=== PATIENT | male | born 1960 | race Caucasian/White ===

== ENCOUNTER → 2016-10-19 | Outpatient (CLI) | payer OTHER ==
[2016-10-19 12:40] LABS: ALT/SGPT 31 U/L (12-78); AST/SGOT 18 U/L (15-37); BLOOD UREA NITROGEN 22 mg/dl (7-18); BUN/CREATININE RATIO 23.5 (10-20); CALCIUM 8.8 mg/dl (8.5-10.1); CARBON DIOXIDE 30 mmol/L (21-32); CHLORIDE 110 mmol/L (98-107); CREATININE 0.95 mg/dl (0.60-1.40); GLUCOSE 92 mg/dl (70-99); POTASSIUM 3.9 mmol/L (3.5-5.1); SODIUM 144 mmol/L (136-145)
[2016-10-19 12:51] LABS: CHOLESTEROL 189 mg/dl (0-200); HDL CHOLESTEROL 47 mg/dl; LDL CHOLESTEROL CALCULATED 123 mg/dl; TRIGLYCERIDES 95 mg/dl (0-150); VERY LOW DENSITY LIPOPROT CALC 19 mg/dl
== END | disposition home or self-care (01) ==
LOC: C.LAB 09:21
DX: I10 Essential (primary) hypertension (principal); E78.5 Hyperlipidemia, unspecified

== ENCOUNTER → 2017-08-09 | Outpatient (CLI) | payer OTHER ==
[2017-08-09 10:11] LABS: ALT/SGPT 41 U/L (12-78); AST/SGOT 29 U/L (15-37); BLOOD UREA NITROGEN 31 mg/dl (7-18); CALCIUM 8.9 mg/dl (8.5-10.1); CARBON DIOXIDE 25 mmol/L (21-32); CREATININE 0.97 mg/dl (0.60-1.40); GLUCOSE 118 mg/dl (70-99); POTASSIUM 3.7 mmol/L (3.5-5.1); SODIUM 138 mmol/L (136-145)
== END | disposition home or self-care (01) ==
LOC: C.LAB 08:05
DX: I10 Essential (primary) hypertension (principal); E78.5 Hyperlipidemia, unspecified

== ENCOUNTER → 2017-10-16 | Outpatient (CLI) | payer OTHER ==
--- NOTE | 2017-10-16 17:34 | DIAGNOSTIC IMAGING REPORT ---
R LOWER EXT JOINT WITHOUT CLINICAL HISTORY: 57 years-old Male presenting with RT KNEE PAIN. TECHNIQUE: Multisequence, multiplanar MR imaging of the right knee was performed without the use of intravenous contrast. IV contrast: None. COMPARISON: Plain radiographs from 10/11/2017. FINDINGS: Localizer images: Unremarkable. Bone marrow: Foci of bone marrow edema and cystic change evident in the lateral patellar facet and lateral femoral condyle at the trochlea. Minimal edema noted in the medial tibial plateau primarily along the mid anterior weightbearing portion. Bony cystic change also noted posteriorly in the medial tibial plateau near the posterior root of the medial meniscus. Articular cartilage: Articular cartilage thinning and fissuring evident in the mid weightbearing portion of the medial femoral condyle and apposing medial tibial plateau. Focal articular cartilage defect in the mid to posterior weightbearing portion of the lateral femoral condyle (series 8 image 7). Full-thickness cartilage loss in the lateral patellar facet, which is fairly diffuse. Near full-thickness cartilage loss evident in the lateral trochlea. Fissuring and irregularity of the articular cartilage of the medial patellar facet and medial trochlea. Tricompartmental osteophytosis evident. Menisci: Complex tear of the root of the medial meniscus extending into the posterior horn and posterior horn-body junction. Meniscocapsular ligaments intact. No extrusion of the meniscus. Associated intraosseous ganglion or parameniscal cystic change at the root of the medial meniscus. Complex tear of the anterior horn of the lateral meniscus also noted involving the femoral articular surface (series 7 image 6). Cruciate ligaments: Increased signal intensity within the anterior cruciate ligament suggests mucoid degeneration. Posterior cruciate ligament intact. Collateral ligaments: Medial collateral ligament intact. Lateral collateral ligament complex including the biceps femoris tendon, fibular collateral ligament, popliteal tendon, and iliotibial band intact. Quadriceps and patellar tendons: Quadriceps and patellar tendons intact. Medial and lateral patellar retinacula intact. Joint effusion: Trace knee joint effusion. Trace popliteal cyst. Muscle: Normal muscle bulk and muscle signal intensity. Superficial soft tissue: Subcutaneous edema noted in the infrapatellar region. IMPRESSION: 1. Tricompartmental degenerative changes most severe in the patellofemoral compartment with full-thickness articular cartilage loss laterally. 2. Complex tear of the root and posterior horn of the medial meniscus. 3. Complex tear of the anterior horn of the lateral meniscus. 4. Mucoid degeneration of the ACL. 5. Trace knee joint effusion. Electronically signed by: Pepe Lugo M.D. 10/16/2017 5:33 PM Dictated Date/Time: 10/16/2017 5:21 PM
== END | disposition home or self-care (01) ==
LOC: C.MRIBC 16:29
PROVIDERS: ATTEND Orthopaedic Surgery
DX: S83.241A Other tear of medial meniscus, current injury, right knee, initial encounter (principal); S83.281A Other tear of lateral meniscus, current injury, right knee, initial encounter; X58.XXXA Exposure to other specified factors, initial encounter

== ENCOUNTER 2021-06-15 11:35 | Observation (INO) ==
--- NOTE | 2021-03-31 10:30 | PAT Medication Instructions ---
Medication Instructions Date of Service March 31, 2021 Home Medications docusate sodium 100 mg capsule (Dulcolax Stool Softener (docusate)) 100 mg PO QAM lisinopril 5 mg tablet 10 mg PO QAM loratadine 10 mg tablet (Allergy Relief (loratadine)) 10 mg PO QAM lorazepam 0.5 mg tablet 0.5 mg PO DAILY PRN metoprolol succinate 50 mg tablet,extended release 24 hr 50 mg PO QAM rosuvastatin 5 mg tablet 5 mg PO QAM cholestyramine (with sugar) oral powder 1 ea PO QAM coenzyme Q10 100 mg capsule (Co Q-10) 100 mg PO QAM naproxen sodium 220 mg capsule (Aleve) 660 mg PO QAM ASK your surgeon for instructions naproxen sodium 220 mg capsule (Aleve) 660 mg PO QAM STOP taking 2 weeks before surgery coenzyme Q10 100 mg capsule (Co Q-10) 100 mg PO QAM STOP taking 48 hours before surgery cholestyramine (with sugar) oral powder 1 ea PO QAM DO NOT take the morning of surgery loratadine 10 mg tablet (Allergy Relief (loratadine)) 10 mg PO QAM lisinopril 5 mg tablet 10 mg PO QAM docusate sodium 100 mg capsule (Dulcolax Stool Softener (docusate)) 100 mg PO QAM Take morning of surgery With a small sip of water, OTHERWISE NOTHING TO EAT OR DRINK AFTER MIDNIGHT: rosuvastatin 5 mg tablet 5 mg PO QAM metoprolol succinate 50 mg tablet,extended release 24 hr 50 mg PO QAM lorazepam 0.5 mg tablet 0.5 mg PO DAILY PRN(if needed) Other Notes If you have any questions please call us at [phone] or [phone] or [phone] or [phone]
--- NOTE | 2021-04-04 09:42 | Anesthesiology Consultation ---
Date of Service April 04, 2021 Assessment & Plan (1) Encounter for pre-operative examination: - medical clearance letter from [facility] vascular 02/22/2021: "...follow up of ascending aortic aneurysm on 02/21/2021. He has a stable ascending aortic aneurysm with no significant valvular disease. We plan to see him in one year for follow up surveillance testing. He is cleared from an aortic perspective to undergo knee replacement surgery." - Case discussed with Dr. Kellogg. Outpatient joint pathway: Per patient and surgeon, plan for outpatient joint program. Upon review of chart- patient is NOT an acceptable candidate for Same Day Joint Program given aneurysm. Trina at surgeon's office aware. Pt made aware in clinic. - COVID screening: Per assessment on 04/04/2021: Travel screen negative, no known COVID-19 positive contacts or current COVID-19 related symptoms. Patient vaccinated. Surgeon arranging preop COVID testing, scheduled 04/26/2021 [place]. Awaiting results. Chart Review Chart Review: Acceptable Risk for Surgery and Patient seen in Pre Admission Testing Teaching & Discussion Pre-Anesthesia Teaching/Discussion Notes: Instructed NPO after midnight before surgery, except medications with 15 cc of water. Medication instructions provided according to the PAT guidelines. History Surgery Operation Date: 04/28/21 10:20 Proposed Procedures p Left Total Knee Arthroplasty - Gee Monge DO Height/Weight Height: 5 ft 10 in Weight: 106.5 kg Allergies Allergy/AdvReac Type Severity Reaction Status Date / Time No Known Allergies Allergy Verified 03/27/21 08:33 Medications Home Medications Medication Instructions Recorded Confirmed Last Taken docusate sodium 100 mg capsule 100 mg PO QAM 09/06/20 03/27/21 Unknown (Dulcolax Stool Softener (docusate)) lisinopril 5 mg tablet 10 mg PO QAM 09/06/20 03/27/21 Unknown loratadine 10 mg tablet (Allergy 10 mg PO QAM 09/06/20 03/27/21 Unknown Relief (loratadine)) lorazepam 0.5 mg tablet 0.5 mg PO DAILY PRN 09/06/20 03/27/21 Unknown metoprolol succinate 50 mg 50 mg PO QAM 09/06/20 03/27/21 Unknown tablet,extended release 24 hr rosuvastatin 5 mg tablet 5 mg PO QAM 09/06/20 03/27/21 Unknown cholestyramine (with sugar) oral 1 ea PO QAM 03/27/21 03/27/21 Unknown powder coenzyme Q10 100 mg capsule (Co 100 mg PO QAM 03/27/21 03/27/21 Unknown Q-10) naproxen sodium 220 mg capsule 660 mg PO QAM 03/27/21 03/27/21 Unknown (Aleve) Past Medical History Medical History (Updated 04/04/21 @ 15:53 by Deloris Green PA-C) Anxiety rare prn lorazepam use Aortic aneurysm 5 cm ascending thoracic aortic aneurysm on chest CTA 01/2021 Hx of nasal polyp removal > 20 yrs ago Hyperlipidemia Hypertension controlled, stable per pt, improving with intentional wt loss Osteoarthritis Snores now infrequent, has lost 10lbs, improving per pt and Patient denies h/o stroke, seizures, heart attack, heart failure, DM, blood clots or blood transfusions. Exercise / Class Metabolic Activity III < 4 Walking/Shop/Light housework (no CP or SOB) Past Family History Family History Brother Stroke He states potential concern for his brother having a clotting disorder when brother had stroke s/p catheterization for suspected NE. Pt states his and his brother's work-up with hematology negative. Past Surgical History Surgical History (Updated 04/04/21 @ 10:08 by Deloris rGeen PA-C) H/O umbilical hernia repair History of colonoscopy Hx of LASIK Hx of vasectomy Past Anesthesia History No Hx of Anesthesia Complications and No Family Hx of Anesthesia Complications History of PONV No Hx of PONV and No Hx of Motion Sickness Social History Smoking Status: Never smoker Do You Dip or Chew Tobacco: No Hx Alcohol Use: Yes Alcohol type: beer alcohol intake frequency: 0-2 drinks per day Hx Substance Use: No substance use type: does not use Review of Systems Patient denies chest pain, shortness of breath, dyspnea on exertion, witnessed apneas, reflux, fever, chills, cough, wheezing, or palpitations. Physical Exam Vital Signs Vitals BP 137/89 P 62 TEMP 98.5 SP02 98% on RA RESP 16 Physical Full cervical extension range of motion without pain Full TMJ range of motion TMD 3.5 finger breaths Mallampati Score 2 Dentition: intact, front left bottom chipped tooth; denies missing or loose teeth, caps/crowns, bridges or implants Lungs: normal respiratory effort. Clear throughout to auscultation, no adventitious breath sounds Cardiac: regular rate and rhythm, no murmurs noted Carotid arteries: negative bruit bilat Extremities: no distal extremity edema Lab Results Anesthesia Preop Results Results Anesthesia Widget: WBC 7.11 K/uL (4.8-10.8) 04/04/21 Hgb 15.2 g/dL (14.0-18.0) 04/04/21 Hct 44.9 % (42-52) 04/04/21 Plt 247 K/uL (130-400) 04/04/21 Na 141 mmol/L (136-145) 04/04/21 K 4.6 mmol/L (3.5-5.1) 04/04/21 Cl 109 mmol/L (98-107) H 04/04/21 CO2 27 mmol/L (21-32) 04/04/21 BUN 14 mg/dl (7-18) 04/04/21 Creat 0.90 mg/dl (0.6-1.4) 04/04/21 Glucose Level 94 mg/dl (70-99) 04/04/21 PT 10.3 Seconds (9.0-12.0) 04/04/21 PTT 25.8 Seconds (21.0-31.0) 04/04/21 INR 1.0 (0.9-1.1) 04/04/21 Blood Type A Positive 04/04/21 Antibody Screen NEGATIVE 04/04/21 Testing Electrocardiogram Date: 04/04/21 Normal sinus rhythm, rate 63 bpm. Sinus arrhythmia. Non-specific intra-ventricular conduction delay. Borderline ECG. No previous ECGs. Confirmed by Jairo Siddiqi. Chest X-Ray Date: 04/04/21 IMPRESSION: No acute chest disease. Echocardiogram Date: 02/06/21 Left ventricular systolic function is normal. No regional wall motion abnormalities noted. Mild cLVH. EF 55-60%. Mild tricuspid regurgitation. Mild aortic root dilatation 4.2 cm. Moderately dilated ascending aorta 4.8 cm. Grade I diastolic dysfunction. Compared with study dated 05/15/2018, no significant change. Other Testing Chest CTA 02/06/2021: Ascending aorta measures 5 cm in caliber at the level of the main pulmonary artery. IMPRESSION: 1. 5 cm ascending thoracic aortic aneurysm, minimally increased in caliber since CT of May 15, 2018 when it measured 4.8 cm. 2. No thoracic aortic dissection. 3. Cardiomegaly.
--- NOTE | 2021-06-14 16:48 | History & Physical Report ---
Date of Service June 14, 2021 Assessment & Plan (1) Osteoarthritis of left knee: We will proceed with a left total knee arthroplasty. Postoperatively he will be started on aspirin for DVT prophylaxis and kept overnight in the hospital for postoperative medical management. He plans to use [employer] upon discharge. History of Present Illness Chief Complaint: Osteoarthritis of the left knee. Primary Care Provider: Guillermo Hernandez Jr, Tad is a pleasant 61-year-old male who is been dealing with chronic worsening left knee pain. X-rays and clinical examination have been diagnostic for advanced osteoarthritis of the left knee. After failing extensive conservative treatment, including multiple injections, he has elected to proceed with a left total knee arthroplasty. Allergies Allergy/AdvReac Type Severity Reaction Status Date / Time No Known Allergies Allergy Verified 06/14/21 13:00 Home Medications Medication Instructions Recorded Confirmed Type docusate sodium 100 mg capsule 100 mg PO QAM 09/06/20 06/14/21 History (Dulcolax Stool Softener (docusate)) lisinopril 5 mg tablet 10 mg PO QAM 09/06/20 06/14/21 History loratadine 10 mg tablet (Allergy 10 mg PO QAM 09/06/20 06/14/21 History Relief (loratadine)) lorazepam 0.5 mg tablet 0.5 mg PO DAILY PRN 09/06/20 06/14/21 History metoprolol succinate 50 mg 50 mg PO QAM 09/06/20 06/14/21 History tablet,extended release 24 hr rosuvastatin 5 mg tablet 5 mg PO QAM 09/06/20 06/14/21 History cholestyramine (with sugar) oral 1 ea PO QAM 03/27/21 06/14/21 History powder coenzyme Q10 100 mg capsule (Co 100 mg PO QAM 03/27/21 06/14/21 History Q-10) naproxen sodium 220 mg capsule 660 mg PO QAM 03/27/21 06/14/21 History (Aleve) Past Med/Surg History Medical History Anxiety rare prn lorazepam use Aortic aneurysm 5 cm ascending thoracic aortic aneurysm on chest CTA 01/2021 Hx of nasal polyp removal > 20 yrs ago Hyperlipidemia Hypertension controlled, stable per pt, improving with intentional wt loss Osteoarthritis Snores now infrequent, has lost 10lbs, improving per pt and Surgical History H/O umbilical hernia repair History of colonoscopy Hx of LASIK Hx of vasectomy Family History Brother Stroke Social History Smoking Status: Never smoker Second Hand Exposure: No; Hx Alcohol Use: Yes Alcohol type: beer Hx Substance Use: No Preferred Language: [place] Communication Ability: Effective Photographic Reproduction Technician Required: No Beliefs That Will Affect Care: None Current Living Situation: Spouse Feels Safe at Home: Yes Assistive Devices: None Review of Systems All systems reviewed & are unremarkable except as noted in HPI & below. Physical Exam Physical examination of his left knee he has a slight varus deformity. He has range of motion of 0 to 120 degrees. He is no instability. He has pain of the distal medial femoral condyle.. Constitutional WD/WN, vitals as above Eyes PERRL, conjunctivae normal, anicteric sclerae ENMT external ear and nose normal, oropharynx normal Neck trachea midline, no thyromegaly Respiratory normal respiratory effort Cardiovascular RRR, no murmur, no edema Gastrointestinal (Abdomen) normal bowel sounds, soft, nontender, no hepatosplenomegaly Psychiatric A+Ox3, euthymic affect Results & Data Results & Data Laboratory Results . Diagnostic Findings X-rays of the left knee do show advanced osteoarthritis with joint space narrowing, osteophyte formation, and [id number] articulation. PG Care Time/CCT Total # of Minutes Spent Total Time Spent with Patient: Total time spent is greater than 50% in coordination of care (as documented) at patient's floor/unit and/or counseling patient: Coding Level of Care Code None Diagnoses Osteoarthritis of left knee M17.12
[~2021-06-15 11:35] MED LIST: ACETAMINOPHEN 500 MG TAB PO SCH; BUPIVACAINE 0.5 % 5 MG/1 ML PF 10ML VIAL ONE; EPINEPHrine INJ 1 MG/ML AMP ONE; FAMOTIDINE 20 MG TAB PO SCH; GABAPENTIN 600 MG DOSE PO SCH; LR 500ML BOLUS, THEN 15ML/HR IV SCH; LR 60ML/HR IV SCH; ROPIVACAINE 0.5% 5 MG/ML 30 ML VIAL ONE; ROPIVACAINE 0.5% HCL/PF 150 MG, BUPIVACAINE 0.75% MPF 20 ML, EPINEPHrine 30MG/30ML (OR ... INSTIL SCH; TRANEXAMIC ACID 1,000 MG **IV Intra-op IV SCH; TRANEXAMIC ACID 1,000 MG **IV Pre-op IV SCH; ceFAZolin 2000MG 2,000 MG/15 ML SYR IV SCH; dexAMETHasone 4 MG TAB PO SCH
--- NOTE | 2021-06-15 12:28 | History & Physical Bridge Note ---
Date of Service June 15, 2021 History & Physical Bridge Note I have examined the patient, reviewed the History & Physical and in the interval since the performance of the History & Physical I have noted the following changes of clinical significance: no changes noted
[2021-06-15 12:36] LABS: Basophils # (auto) 0.01 K/uL (0-0.2); Basophils % (auto) 0.1 %; Eosinophils # (auto) 0.12 K/uL (0-0.5); Eosinophils % (auto) 1.5 %; Hematocrit (blood only) 45.6 % (42-52); Hemoglobin 15.4 g/dL (14.0-18.0); Immature Granulocytes # (auto) 0.01 K/uL (0.00-0.02); Immature Granulocytes % (auto) 0.1 %; Lymphocytes # (auto) 2.25 K/uL (1.2-3.4); Lymphocytes % (auto) 27.5 %; Mean Corpuscular Hemoglobin 30.3 pg (25-34); Mean Corpuscular Volume 89.8 fL (80-100); Mean Platelet Volume 9.5 fL (7.4-10.4); Monocytes # (auto) 0.89 K/uL (0.11-0.59); Monocytes % (auto) 10.9 %; Neutrophils # (auto) 4.89 K/uL (1.4-6.5); Neutrophils % (auto) 59.9 %; Platelet Count 248 K/uL (130-400); RDW Coefficient of Variation 13.8 % (11.5-14.5); RDW Standard Deviation 46.2 fL (36.4-46.3); Red Blood Count 5.08 M/uL (4.7-6.1); White Blood Count 8.17 K/uL (4.8-10.8)
[2021-06-15 12:40] LABS: Mean Corpuscular Hgb Conc 33.8 g/dL (32-36)
[2021-06-15 12:57] LABS: BUN Creatinine Ratio 22.5 (10-20); Est GFR (African American) 108.5 ml/min; Est GFR (Non-African American) 93.6 ml/min
[2021-06-15 13:11] LABS: Partial Thromboplastin Ratio 0.9; Partial Thromboplastin Time 24.8 Seconds (21.0-31.0)
[2021-06-15] MEDS ORDERED: fentaNYL citrate 100 MCG/2 ML VIAL ONE (13:16)
[2021-06-15] MEDS ORDERED: MIDAZOLAM HCL 1 MG/ML 2ML VIAL ONE (13:16)
[2021-06-15] MEDS ORDERED: ePHEDrine sulfate 50 MG/ML AMP IV PRN ×2 (13:21→13:59)
[2021-06-15] MEDS ORDERED: ATROPINE SULFATE 0.1 MG/ML 10ML SYR IV PRN ×2 (13:21→13:59)
[2021-06-15] MEDS ORDERED: ONDANSETRON INJ 2 MG/ML 2 ML VIAL IV PRN ×3 (13:21→18:28)
[2021-06-15] MEDS ORDERED: fentaNYL citrate 100 MCG/2 ML VIAL IV PRN ×2 (13:21→13:59)
[2021-06-15] MEDS ORDERED: LIDOCAINE 2%/EPINEPHRINE 1:200,000 20 ML SDV ONE (13:24)
[2021-06-15] MEDS ORDERED: ORTHO JOINT ANESTHETIC ONE (13:47)
[2021-06-15] MEDS ORDERED: PROPOFOL IV EMULSION 10 MG/ML 20 ML VIAL IV ONE ×2 (13:52→15:01)
[2021-06-15] MEDS ORDERED: ONDANSETRON INJ 2 MG/ML 2 ML VIAL ONE (13:53)
[2021-06-15] MEDS ORDERED: ePHEDrine sulfate 50 MG/ML SYR ONE (14:50)
--- NOTE | 2021-06-15 15:37 | Operative Report ---
PG Post Operative Report Pre & Post Diagnosis Operation Date: 04/28/21 07:00 <No data on this case meets the specified criteria> Operation Date: 06/15/21 13:45 Pre-Op Diagnosis: Degenerative joint disease left knee. Post-Op Diagnosis: Degenerative joint disease left knee. I identified the patient and participated in the time-out.: Yes Procedure Operation Date: 04/28/21 07:00 <No data on this case meets the specified criteria> Operation Date: 06/15/21 13:45 Actual Procedures p Left Total Knee Arthroplasty(Left) - Gee Monge DO Surgeon Gee Monge DO Sheet Metal Mechanic Gee Booker PAC Estimated Blood Loss 10 Findings Consistent with Post-Op Diagnosis Specimens Left femoral and tibial bone Complications none Disposition Disposition: Recovery Room Indications Tad is a pleasant 61-year-old male who has been doing with chronic worsening left knee pain. X-rays and clinical examination were diagnostic for advanced osteoarthritis of the left knee. After failing conservative treatment, he elected proceed with a left total knee arthroplasty. Description of Procedure Implants used: I used a Ashli Persona total knee arthroplasty system with a size 11 standard femur, G tibia, 31 patella, and a size 11 medial congruent polyethylene bearing. All components were cemented in place with Simplex HV cement. Tad arrived [facility] for the above procedure. He was seen in the preoperative holding area and the operative extremity was identified and signed. He was given a preoperative antibiotic, TXA, a spinal anesthetic and an adductor nerve block. He was taken back to the operating room and laid on the table in supine position. He was given basic sedation. The operative knee was then prepped and draped in sterile fashion. A timeout was done, and the patient and the operative extremity was properly identified. A midline incision was made directly over the patella. Dissection was taken down to the extensor mechanism. A subvastus arthrotomy was used. The medial retinaculum was released and the fat pad was mostly excised. The knee was flexed and the ACL, PCL, and meniscus were removed. A drill was sent down the center of the femoral canal followed by an intramedullary romaine. Off that romaine a distal femoral cutting block was placed. 9 mm was resected off the distal femur at 5 of valgus. A posterior referencing AP sizing guide was then placed on the distal femur. The femur measured to be a size 11. 2 drill holes were placed in 3 of external rotation. A 4-in-1 cutting block was then impacted into place. Anterior, posterior, and chamfer cuts were then made. The proximal tibia was then exposed. An external tibial alignment guide was placed. A tibial cut guide was then anchored in place and the proximal tibia was then resected. The posterior aspect of the knee was then opened up and any additional meniscus fragments and osteophytes were removed. The tibia measured to be a size G. The tibial plate was then placed in the appropriate rotation and the tibia was drilled and punched. Trial components were then placed. I used a size 11 medial congruent polyethylene insert. The knee was brought through a full range of motion and felt to be stable. The peg holes for the femoral component were then drilled. The patella was then everted and 9 mm was resected off the posterior aspect of the patella. The patella measured to be a size 31. 3 peg holes were then drilled. A trial patella was placed. The knee was once again brought through a full range of motion and felt to be stable. Trial components were then removed. The surrounding soft tissues were injected with 100 cc of an orthopedic pain control cocktail. All components were then cemented into place with Simplex HV cement. The final polyethylene insert was then snapped into place. Once cement was dry the tourniquet was deflated. Hemostasis was obtained. A dilute betadyne lavage was then done for 3 minutes. The joint was then irrigated with normal saline solution. The subvastus arthrotomy was then closed with #1 Vicryl suture. The skin was closed with 2-0 Vicryl, 3-0V lock suture, and vince. A soft compressive dressing was placed. He was then transferred to a hospital bed and taken to the postanesthesia care unit in stable condition. He tolerated the procedure well. Gee Booker PA-C, was present for the entire procedure. He was critical for patient positioning, prepping, draping, retraction exposure, wound closure and application of sterile dressing. I attest to the content of the Intraoperative Record and any orders documented therein. Any exceptions are noted below.
--- NOTE | 2021-06-15 16:37 | XRay Report ---
TWO VIEWS LEFT KNEE CLINICAL HISTORY: Postoperative examination. FINDINGS: AP and crosstable lateral portable views of the left knee are obtained. A left knee arthrop lasty is in near anatomic alignment. There has been undersurface remodeling of the patella. No acute fracture is seen. There are expected postoperative changes around the knee including skin clips, soft tissue edema, and subcutaneous gas. IMPRESSION: Expected postoperative changes status post left knee arthroplasty. No acute fracture is s een. ACT 112: Negative or not required by law. Electronically signed by: Steve Worley M.D. 06/15/2021 4:35 PM
--- NOTE | 2021-06-15 16:37 | Anesthesia Procedure Note ---
Date of Service June 15, 2021 Anesthesia Post Epidural Note Vital Signs Vital Signs: Temp Pulse Resp BP Pulse Ox 97.3 F L 64 13 142/92 H 96 06/15/21 15:56 06/15/21 16:25 06/15/21 16:25 06/15/21 16:25 06/15/21 16:25 Notes Mental Status: alert / awake / arousable and participated in evaluation Nausea / Vomiting: adequately controlled Pain: adequately controlled Airway Patency, RR, SpO2: stable & adequate BP & HR: stable & adequate Hydration State: stable & adequate Neuraxial Anesthesia: was administered and sensory block is resolving Anesthetic Complications: no major complications apparent and Pt Satisfied with anesthetic care Epidural: Removed without complications and With tip intact
--- NOTE | 2021-06-15 17:37 | Anesthesiology Progress Note ---
Date of Service June 15, 2021 Anesthesia Post Procedure Vital Signs Vital Signs: Temp Pulse Pulse Resp BP Pulse Ox 06/15/21 17:15 67 17 136/88 97 06/15/21 17:00 68 17 141/95 H 98 06/15/21 16:45 69 20 139/98 96 06/15/21 16:35 36.1 C L 66 19 143/88 H 96 06/15/21 16:25 64 13 142/92 H 96 06/15/21 16:15 68 14 149/89 H 100 06/15/21 16:05 67 17 142/87 H 100 06/15/21 15:56 36.3 C L 68 12 135/80 100 06/15/21 12:28 36.9 C 68 18 168/104 H 99 Transfer of Care Handoff Completed per policy Notes Mental Status: alert / awake / arousable and participated in evaluation Patient Amnestic to Procedure: Yes Nausea / Vomiting: adequately controlled Pain: adequately controlled Airway Patency, RR, SpO2: stable & adequate BP & HR: stable & adequate Hydration State: stable & adequate Anesthetic Complications: no major complications apparent and Pt Satisfied with anesthetic care
[2021-06-15] MEDS ORDERED: SODIUM CHLORIDE 0.9% 1000ML 1,000 ML IV SCH (18:28)
[2021-06-15] MEDS ORDERED: LORazepam 0.5 MG TAB PO PRN (18:28)
[2021-06-15] MEDS ORDERED: bisacodyL 10 MG SUPP PR PRN (18:28)
[2021-06-15] MEDS ORDERED: HYDROmorphone INJ 0.5 MG/0.5 ML SYR IV PRN (18:28)
[2021-06-15] MEDS ORDERED: NALOXONE HCL 0.4 MG/1 ML VIAL/CARP IV PRN (18:28)
[2021-06-15] MEDS ORDERED: MAGNESIUM HYDROXIDE SUSP 30 ML UDC PO PRN (18:28)
[2021-06-15] MEDS ORDERED: METOCLOPRAMIDE HCL INJ 5 MG/ML 2 ML VIAL IV PRN (18:28)
[2021-06-15] MEDS ORDERED: oxyCODONE HCL IR 5 MG TAB (IMMEDIATE RELEASE) PO PRN (18:28)
[2021-06-15] MEDS ORDERED: SENNA 8.6 MG TAB PO SCH (21:00)
[2021-06-15] MEDS: KETOROLAC 30 MG/ML VIAL IV SCH (21:03)
[2021-06-15] MEDS: ASPIRIN 81 MG ECTAB PO SCH (21:04)
[2021-06-15] MEDS: ceFAZolin 2000MG 2,000 MG/15 ML SYR IV SCH (21:05)
[2021-06-15] MEDS: ACETAMINOPHEN 500 MG TAB PO SCH (21:05)
[2021-06-15] MEDS: DOCUSATE SODIUM 100 MG CAP PO SCH (21:05)
[2021-06-16] MEDS: KETOROLAC 30 MG/ML VIAL IV SCH ×2 (03:18→07:55)
[2021-06-16] MEDS: ceFAZolin 2000MG 2,000 MG/15 ML SYR IV SCH (06:39)
[2021-06-16] MEDS: ACETAMINOPHEN 500 MG TAB PO SCH (06:39)
[2021-06-16] MEDS: DOCUSATE SODIUM 100 MG CAP PO SCH (07:56)
[2021-06-16] MEDS ORDERED: dexAMETHasone 4 MG TAB PO SCH (08:00)
--- NOTE | 2021-06-16 08:05 | Orthopedic Progress Note ---
Date of Service June 16, 2021 Assessment & Plan (1) Status post left knee replacement: Overall he is doing very well. Is not having much pain in the left knee. He is on aspirin for DVT prophylaxis. He will be seen by physical therapy today for ambulation and range of motion exercises. He can be discharged home later today. He will follow-up with orthopedics in 2 weeks. Cecille Mishra was seen and examined at bedside this morning. Overall is doing very well. He is not having much pain in the left knee. Has been up and ambulating. He has no complaints.. Review of Systems All systems reviewed & are unremarkable except as noted in HPI & below. Physical Exam On physical examination of the left knee, he is sitting at bedside with his knee flexed at 90 degrees. He has active dorsiflexion plantarflexion of his left ankle. The dressing is clean and dry. Results & Data Results & Data Laboratory Results . Diagnostic Findings The prosthesis to be in anatomic alignment without any evidence of fracture, desiccation, or loosening. PG Care Time/CCT Total # of Minutes Spent Total Time Spent with Patient: Total time spent is greater than 50% in coordination of care (as documented) at patient's floor/unit and/or counseling patient: Coding Level of Care Code 67864 Post Operative Follow-Up Diagnoses Status post left knee replacement Z96.652
--- NOTE | 2021-06-16 08:06 | Discharge Summary ---
Date of Service June 16, 2021 Admission HPI (Per Admitting) Tad is a pleasant 61-year-old male who is been dealing with chronic worsening left knee pain. X-rays and clinical examination have been diagnostic for advanced osteoarthritis of the left knee. After failing extensive conservative treatment, including multiple injections, he has elected to proceed with a left total knee arthroplasty. Admission Exam (Per Admitting) Physical examination of his left knee he has a slight varus deformity. He has range of motion of 0 to 120 degrees. He is no instability. He has pain of the distal medial femoral condyle.. Principal Diagnosis Same as "Discharge Diagnosis" noted below under Discharge Instructions. Discharge Exam On physical examination of the left knee, he is sitting at bedside with his knee flexed at 90 degrees. He has active dorsiflexion plantarflexion of his left ankle. The dressing is clean and dry. Discharge Data Procedures Performed Operation Date: 04/28/21 07:00 <No data on this case meets the specified criteria> Operation Date: 06/15/21 13:45 Actual Procedures p Left Total Knee Arthroplasty(Left) - Gee Mogne DO Ordered Studies 06/15/21 05:00 US - OR guided needle placemen Routine Hospital Course (1) Status post left knee replacement: On June 15 2021 Tad arrived at [facility] and underwent a left knee replacement without complication. He had a spinal anesthetic. Postoperatively he was started on aspirin for DVT prophylaxis and transferred to the general orthopedic floors. His hospital course was uneventful. On postop day #1 his vital signs were stable and his pain was well controlled. He was able to participate well with physical therapy doing ambulation and range of motion exercises. He was then discharged home. He will follow-up with orthopedics in 2 weeks. PG Care Time/CCT Total # of Minutes Spent Total Time Spent with Patient: Total time spent is greater than 50% in coordination of care (as documented) at patient's floor/unit and/or counseling patient: Discharge Plan Discharge Items Patient Disposition: Home - Home Health Services Reason For Visit: POST SURGICAL VISIT Discharge Diagnosis: Left knee replacement Activity: As commented below Non-emergency contact: Surgeon Call non-emergency contact if: your wound has increased redness and your wound has increased drainage Follow-up/Referrals: Guillermo Hernandez Jr, DO [Primary Care Provider] - Diet: Regular Addtl Attending Provider Instructions: Activity and Therapy Recommendations: * If you are using [facility] then therapy will be provided at your home until they feel you have accomplished all of your goals. * If you are using [facility] then Physical Therapy will be provided until they feel you are ready to start Outpatient Physical Therapy. * If you are not using home therapy then Outpatient Physical Therapy should start about 3-5 days from your day of surgery. Therapy will last about 6-10 weeks * It is important not to put a pillow under your knee when you are relaxing or sleeping. It is just as important to make sure you are getting your knee perfectly straight as it is to regain your knee bend. * You were shown a series of exercises in the hospital. Do these exercises three times each day including the exercises you were shown in physical therapy. * Get up and walk several times each day. For the first four weeks, try not to stand or walk for more than one hour at a time. If you do stand or walk for more than one hour, you will not hurt anything, but your leg will likely swell. * As you feel comfortable, you may change from the walker or crutches to a cane and then to independent walking. Medications: * Narcotic You will likely be sent home from the hospital with a prescription for the narcotic pain medication that worked best throughout your stay. * Aspirin Most patients will be required to take Aspirin 81mg twice a day for 6 weeks after surgery. This is obtained [id number] and a prescription is not necessary. * Other medications may be prescribed for specific circumstances. If you have any questions, please call the office at . * Resume previous home medications unless otherwise instructed TEDs/Elastic Stockings: The white elastic stockings help limit swelling and prevent blood clots from forming in your legs.~ The more you wear them, the more they work. Wear them for six weeks. Dressing Care: The dressing can be changed after physical therapy on postop day #1. Daily dry dressing changes for a few days, especially if the incision is still draining some. If the incision is not draining then you may leave the vince open to air. If there is a little bit of drainage or if the vince are getting stuck on your clothing then cover the incision with a dry dressing. The vince will be removed at your 2 week follow-up appointment. Showering: You may shower 5 days from the day of surgery as long as the incision is no longer draining. You may shower with the vince exposed. Let soapy water run over the vince and pat them dry. Do not scrub or soak the incision. Things To Watch For: * Drainage from the incision site that occurs more than one week after your surgery. * Increased redness at the incision site. * Fever above 102 degrees Fahrenheit. * Unusual chest pain or shortness of breath. * Call [facility] at with any of the above problems Follow-Up Visit: Follow-up with Dr. Monge's PA (Gee Booker) 2-3 weeks after your day of surgery. He will remove your vince and answer any questions. If you have any additional questions or concerns, Dr Monge is usually in the office at the same time and will be available An appointment was probably scheduled when you signed-up for surgery in the office. If you have any questions call Office Instructions: More detailed instructions as well as Frequently Asked Questions were provided in a folder by our office when you signed-up for surgery. Please review these instructions when you get home. If you have any further questions or concerns, please feel free to call the office at [phone] Pending Studies at Discharge: No Stand-Alone Forms: My [facility], Smoking Cessation Medications and DC Order Prescriptions: New aspirin [Adult Aspirin Regimen] 81 mg tablet,delayed release (DR/EC) 81 mg PO BID Qty: 84 RF: 0 Continued lorazepam 0.5 mg tablet 0.5 mg PO DAILY PRN (Reason: Anxiety) RF: 0 rosuvastatin 5 mg tablet 5 mg PO QAM RF: 0 lisinopril 5 mg tablet 10 mg PO QAM RF: 0 metoprolol succinate 50 mg tablet extended release 24 hr 50 mg PO QAM RF: 0 loratadine [Allergy Relief (loratadine)] 10 mg tablet 10 mg PO QAM RF: 0 docusate sodium [Dulcolax Stool Softener (dss)] 100 mg capsule 100 mg PO QAM RF: 0 coenzyme Q10 [Co Q-10] 100 mg Capsule 100 mg PO QAM RF: 0 cholestyramine (with sugar) Powder 1 ea PO QAM RF: 0 naproxen sodium [Aleve] 220 mg Capsule 660 mg PO QAM RF: 0 Discharge Orders: Discharge Order (Routine); Ordered 06/16/21 Ordered By: Gee Monge Admission Data Admit Date/Time: 06/15/21 15:58 Attending Provider: Gee Monge Admit Provider: Gee Monge Primary Care Provider: Guillermo Hernandez Jr
[2021-06-16] MEDS ORDERED: MULTIVITAMIN TAB PO SCH (09:00)
[2021-06-16] MEDS ORDERED: METOPROLOL SUCC 50MG EXT REL TAB PO SCH (09:00)
[2021-06-16] MEDS ORDERED: LORATADINE 10 MG TAB PO SCH (09:00)
[2021-06-16] MEDS ORDERED: ROSUVASTATIN CALCIUM 5 MG TAB PO SCH (09:00)
[2021-06-16] MEDS ORDERED: lisinopril 10 MG TAB PO SCH (09:00)
[2021-06-16] MEDS: ASPIRIN 81 MG ECTAB PO SCH (10:25)
== END 2021-06-16 11:05 | disposition home health service (06) ==
LOC: ASU 11:35 → INTOOBSV 15:58 → 3N 15:58